=== PATIENT | female | born 1950 ===

== ENCOUNTER 2016-04-18 13:50 | Outpatient (RCR) | payer OTHER | END 2016-05-14 | disposition home or self-care (01) | LOC: PTY 13:50 | DX: M25.512 Pain in left shoulder (principal); M25.552 Pain in left hip ==

== ENCOUNTER 2016-05-22 12:44 | Outpatient (RCR) | payer OTHER | END 2016-06-11 | disposition home or self-care (01) | LOC: PTY 12:44 | DX: M25.512 Pain in left shoulder (principal); M25.552 Pain in left hip ==